=== PATIENT | male | born 1950 | race Caucasian/White ===

== ENCOUNTER → 2017-03-21 | Outpatient (CLI) | payer OTHER ==
[~2017-03-21] MED LIST: BENADRYL ALLERG25 M5 PO; LEVOTHYROXINE0.05 MG PO; MEDROL DOSEPAK4 MG PO; PRAVACHOL40 MG PO; TRAZODONE50 MG PO; WELLBUTRIN SR150 MG PO
== END | disposition home or self-care (01) ==
LOC: RAD 11:27
DX: M51.36 Other intervertebral disc degeneration, lumbar region (principal); M16.11 Unilateral primary osteoarthritis, right hip

== ENCOUNTER → 2017-10-19 | Outpatient (CLI) | payer OTHER | END | disposition home or self-care (01) | LOC: US 11:00 | DX: R10.30 Lower abdominal pain, unspecified (principal) ==

== ENCOUNTER → 2017-12-25 | Outpatient (CLI) | payer OTHER | END | disposition home or self-care (01) | LOC: ORTHO 01:55 | DX: M25.569 Pain in unspecified knee (principal) ==

== ENCOUNTER → 2018-07-18 | Outpatient (CLI) | payer MEDICARE ==
--- NOTE | ~2018-07-18 | ST ---
[place], [place] EXERCISE STRESS TEST REPORT NAME: [facility] #: [id number] UNIT #: [id number] ROOM: DOCTOR: BRANDT CHAND MD BIRTHDATE: [birth year] DOS: 07/18/2018 CARDIOLOGY EXERCISE MYOCARDIAL STRESS TEST PROCEDURE: The patient underwent an exercise myocardial stress test as part of a myocardial perfusion study today, 07/18/2018. He walked 9 minutes on a full Guido protocol and achieved a maximum heart rate of 149, which represented 96% of his maximum predicted heart rate at a workload of 10.0 mets. The patient was noted to be in atrial flutter upon arrival to the stress lab. He remained in atrial flutter throughout the test. He had some minor palpitations, but no other symptoms and specifically denied chest pain. He did not have excessive dyspnea with exertion. He stopped for fatigue. EKG was not uninterpretable because of the background of flutter waves. Resting blood pressure of 140/80 myriam to 172/98. One minute prior to completion of the exercise protocol, he was given radionuclide intravenously. IMPRESSION: 1. Newly documented atrial flutter. 2. Good exercise capacity without chest pain or diagnostic EKG changes. 3. Radionuclide injected. Please see the separate imaging report for further details of the patient's stress test results. BRANDT CHAND MD CM:STRESS:EXERCISE STRESS TEST REPORT [id number] BRANDT CHAND MD
--- NOTE | 2018-07-18 12:03 | NUR ---
INFORMED CONSENT SIGNED FOR CARDIOLYTE STRESS TEST WITH DR. CHAND. RESTING EKG ATRIAL FLUTTER, HR 116, BP 140/80. PT HAS HAD NO HISTORY OF IRREGULAR HEART RATE. DR. CHAND SPOKE WITH PT CONCERNING NEW ONSET OF A.FLUTTER/A.FIB AND EXPLAINED THE RISK FACTORS INVOLVED. PT IS ASYMPTOMATIC AND WILL PROCEED WITH TEST. COMPLETED 9:00 OF A STANDARD VITO PROTOCOL COMPLETING 3:00 STAGE III, 3.4 MPH/14% GRADE. PEAK HEART RATE OF 149 ACHIEVED WHICH IS 96% PREDICTED MAXIMUM AND A PEAK BP OF 172/98. PVC'S NOTED ALONG WITH NONDIAGNOSTIC ST CHANGES. TEST TERMINATED D/T FATIGUE. HAD A GOOD EXERCISE TOLERANCE. LAST RECOVERY HR 142, BP 150/90. WAITING NUCLEAR SCANNING IN STABLE CONDITION. DR. CHAND SPOKE WITH GAY MANZANO PA-C, CONCERNING TEST FINDINGS AND TREATMENT. PT HAS AN APPOINTMENT TODAY WITH [facility] AND TREATMENT WILL BE REVIEWED WITH PT AT THAT TIME.
== END | disposition home or self-care (01) ==
LOC: CARD 01:06
DX: I48.92 Unspecified atrial flutter (principal)

== ENCOUNTER → 2018-11-10 | Outpatient (CLI) | payer MEDICARE | END | disposition home or self-care (01) | LOC: US 12:30 | DX: M79.661 Pain in right lower leg (principal); I48.91 Unspecified atrial fibrillation; R09.89 Other specified symptoms and signs involving the circulatory and respiratory systems ==

== ENCOUNTER → 2021-08-08 | Outpatient (CLI) | payer MEDICARE | END | disposition home or self-care (01) | LOC: CARD 00:13 | PROVIDERS: ATTEND Physician Assistant | DX: I48.91 Unspecified atrial fibrillation (principal) ==

== ENCOUNTER → 2022-12-13 | Outpatient (CLI) | payer MEDICARE | END | disposition home or self-care (01) | LOC: RAD 09:37 | PROVIDERS: ATTEND Chiropractor | DX: S22.089A Unspecified fracture of T11-T12 vertebra, initial encounter for closed fracture (principal); M47.816 Spondylosis without myelopathy or radiculopathy, lumbar region; M51.36 Other intervertebral disc degeneration, lumbar region; M47.814 Spondylosis without myelopathy or radiculopathy, thoracic region; M48.04 Spinal stenosis, thoracic region; X58.XXXA Exposure to other specified factors, initial encounter; Y93.89 Activity, other specified; Y92.89 Other specified places as the place of occurrence of the external cause; Y99.8 Other external cause status ==

== ENCOUNTER → 2023-01-04 | Outpatient (CLI) | payer MEDICARE | END | disposition home or self-care (01) | LOC: US 00:53 | PROVIDERS: ATTEND Physician Assistant | DX: F10.20 Alcohol dependence, uncomplicated (principal) ==

== ENCOUNTER → 2023-06-12 | Outpatient (CLI) | payer MEDICARE | END | disposition home or self-care (01) | LOC: CARD 05-30 13:00 | PROVIDERS: ATTEND Internal Medicine Cardiovascular Disease | DX: I08.3 Combined rheumatic disorders of mitral, aortic and tricuspid valves (principal); I10 Essential (primary) hypertension; R06.09 Other forms of dyspnea ==

== ENCOUNTER → 2024-06-19 | Outpatient (CLI) | payer MEDICARE | END | disposition home or self-care (01) | LOC: US 12:32 | PROVIDERS: ATTEND Physician Assistant | DX: R22.32 Localized swelling, mass and lump, left upper limb (principal) ==

== ENCOUNTER → 2024-08-20 | Outpatient (CLI) | payer MEDICARE | END | disposition home or self-care (01) | LOC: US 08:54 | PROVIDERS: ATTEND Physician Assistant | DX: R22.0 Localized swelling, mass and lump, head (principal); K11.9 Disease of salivary gland, unspecified ==

== ENCOUNTER → 2024-09-28 | Outpatient (CLI) | payer MEDICARE ==
[~2024-09-28] MED LIST changes: +IOHEXOL 300 MG/ML 100 ML VIAL IV ONE; +IOHEXOL 300 MG/ML 100 ML VIAL ONE
== END | disposition home or self-care (01) ==
LOC: CT 08:48
PROVIDERS: ATTEND Otolaryngology Plastic Surgery within the Head & Neck
DX: K11.23 Chronic sialoadenitis (principal); K11.8 Other diseases of salivary glands